=== PATIENT | male | born 1960 | race Hispanic/Latino ===

== ENCOUNTER 2017-01-06 14:11 | Emergency (ER) | payer BC ==
[2017-01-06 15:14] LABS: #Basophils 0.1 thou/uL (0.0-0.2); #Eosinphils 0.2 thou/uL (0.0-0.7); #Monocytes 0.9 thou/uL (0.11-0.59); %Basophils 0.7 % (0.0-1.0); %Eosinophils 3.1 % (0.0-10.0); %Lymphocytes 24.5 % (21.0-51.0); %Monocytes 10.7 % (0.0-10.0); Hematocrit 38.4 % (42.0-52.0); Mean Platelet Volume 8.5 fL (7.4-10.4); Red Blood Cell (RBC) Count 4.17 mill/uL (4.70-6.10); White Blood Cell (WBC) Count 8.2 thou/uL (4.8-10.8)
[2017-01-06] MEDS ORDERED: Meclizine HCl 25 MG TAB ONE (15:14)
[2017-01-06] MEDS ORDERED: Ondansetron ODT 4 MG TAB ONE (15:14)
[2017-01-06 15:39] LABS: ALT (SGPT) 15 U/L (8-55); AST (SGOT) 18 U/L (5-34); Alkaline Phosphatase 88 U/L (40-150); Anion Gap 14 mmol/L (10-20); BUN (Urea Nitrogen) 16 mg/dL (8.4-25.7); Bilirubin, Total 0.2 mg/dL (0.2-1.2); Calc. Creatinine Clearance 0 mL/min (70-130); Calcium 9.1 mg/dL (7.8-10.44); Carbon Dioxide 27 mmol/L (22-29); Chloride 101 mmol/L (98-107); Estimated GFR-MDRD 83; Globulin 3.4 g/dL (2.4-3.5); Protein, Total 7.3 g/dL (6.0-8.3)
--- NOTE | 2017-01-19 12:54 | EKG ---
Test Reason : Blood Pressure : / mmHG Vent. Rate : 082 BPM Atrial Rate : 082 BPM P-R Int : 164 ms QRS Dur : 088 ms QT Int : 402 ms P-R-T Axes : 030 -25 006 degrees QTc Int : 469 ms Normal sinus rhythm Normal ECG Confirmed by MAGDALENA PAYNE MD ([id number]), department editor GRETCHEN LÓPEZ ([id number]) on 01/19/2017 12:54:04 PM Referred By: Confirmed By:MAGDALENA PAYNE MD
== END 2017-01-06 16:00 | disposition home or self-care (01) ==
LOC: ERS 14:11
DX: R42 Dizziness and giddiness (principal); E11.9 Type 2 diabetes mellitus without complications; I10 Essential (primary) hypertension
CPT/HCPCS: 36416; 80053; 85025; 93005; Q0162